=== PATIENT | male | born 1950 | race African-American/Black ===

== ENCOUNTER 2020-11-16 20:24 | Emergency (ER) | payer MEDICARE, SELFPAY ==
[2020-11-16] VITALS (7 sets, daily range): BP systolic 134–145; BP diastolic 86–94; PULSE 94–106; RESP 16–24; TEMP 36.1–37.1; O2SAT 87–94; BMI 33.0
--- NOTE | 2020-11-16 20:34 | EKG12_ITS ---
Test Reason : SOB Blood Pressure : / mmHG Vent. Rate : 097 BPM Atrial Rate : 097 BPM P-R Int : 152 ms QRS Dur : 120 ms QT Int : 372 ms P-R-T Axes : 051 -52 110 degrees QTc Int : 472 ms Normal sinus rhythm Left axis deviation Left ventricular hypertrophy with QRS widening and repolarization abnormality Abnormal ECG Confirmed by YUAN DICKINSON, MARGARITA ([id number]), greeting card editor BRANDON CASTRO ([id number]) on 11/18/2020 9:16:13 AM Referred By: RAZA Confirmed By:MARGARITA BOLDEN MD
--- NOTE | 2020-11-16 20:34 | RAD_ITS ---
INDICATION: SOB EXAMINATION/TECHNIQUE: X-RAY - XR Chest 1 View COMPARISON: None. FINDINGS: Bilateral interstitial and airspace opacities. The cardiomediastinal silhouette is unremarkable. No pleural effusion or pneumothorax. No acute osseous abnormalities. RAD/Chest 1 View (Portable) IMPRESSION: Bilateral interstitial and airspace opacities concerning for infection. Electronically Signed: Ambrocio Murphy MD at 21:57 EDT Tel , Service support ,
[2020-11-16] MEDS: dexAMETHasone 10 MG/ML Vial 6 MG IV (22:02)
[2020-11-16 22:07] LABS: Lactic Acid 1.5 mmol/L (0.4-1.9)
[2020-11-16 22:10] LABS: ALB/GLOB Ratio 0.5 RATIO (0.9-2.4); AST(SGOT) 107 U/L (15-37); Alanine Aminotransfer ALT/SGPT 78 U/L (16-61); Albumin, Serum 2.8 g/dL (3.2-5.0); Alkaline Phosphatase 59 U/L (45-117); Anion Gap 6 (5-15); BUN 33 mg/dL (7-18); BUN/Creat Ratio 19.2 RATIO (10-20); Chloride 101 mmol/L (98-107); Creatinine, Serum 1.72 mg/dL (0.70-1.30); EST Glomerular Filtration Rate 42 mL/min (>60); Est Glom Filt Rate - Afr Amer 51 mL/min (>60); Estimated Creatinine Clearance 45.16 ml/min; Globulin 5.7 g/dL (2.2-4.2); Glucose 107 mg/dL (74-106); Potassium 4.3 mmol/L (3.5-5.1); Protein, Total 8.5 g/dL (6.4-8.2); Sodium Level 135 mmol/L (136-145); Troponin-I HS 61 pg/mL (3.0-78.0)
[2020-11-16 22:15] LABS: Procalcitonin 0.25 ng/mL (0.00-0.09)
[2020-11-16 22:17] LABS: Absolute Neutrophil Count 5.3 X10^3/uL (2.0-7.7); Basophil# 0.03 X10^3/uL; Basophil% 0.4 % (0-1); Eosinophil# 0.02 X10^3/uL; Eosinophils% 0.3 % (0-5); Hematocrit 49.9 % (40-54); Hemoglobin 16.2 g/dL (13.0-16.5); Lymphocyte % 14.7 % (19-41); Mean Corp Hgb Conc 32.5 g/dL (32-36); Mean Corpuscular Hgb 28.7 pg (27.0-32.0); Mean Corpuscular Volume 88.3 fL (80-94); Mean Platelet Vol. 10.8 fl (6.2-12.0); Monocyte# 0.34 X10^3/uL; NRBC Flagged by Analyzer 0 % (0-5); Neutrophil # 5.32 X10^3/uL (2.7-7.7); Neutrophil % 78.4 % (47-70); POSITIVE MORPHOLOGY YES; Platelet Count 283 K/mm3 (150-450); RBC Distribution Width CV 13.5 % (11.6-14.6); RBC Distribution Width SD 43.7 fl (35.1-43.9); Red Blood Count 5.65 M/mm3 (4.6-6.2); White Blood Count 6.8 K/mm3 (4.4-11.0)
[2020-11-16 22:19] LABS: Differential Indicated SCAN CRITERIA MET
[2020-11-16 22:34] LABS: D-Dimer Quantitative (DVT/PE) 2.26 FEU/ug/m (0.27-0.49)
--- NOTE | 2020-11-16 22:34 | CT_ITS ---
EXAM: CT Angiography Chest Without and With Intravenous Contrast CLINICAL INDICATION: shortness of breath TECHNIQUE: Helically acquired angiography images were obtained of the chest without and with intravenous contrast. This CT exam was performed using one or more of the following dose reduction techniques: automated exposure control, adjustment of the mA and/or kV according to patient size, and/or use of iterative reconstruction technique. MIP reconstructed images were created and reviewed. CONTRAST: IV 100mL [id number] COMPARISON: None. FINDINGS: Artifacts: Motion artifact. Pulmonary arteries: Unremarkable. Normal in caliber. No pulmonary embolism is identified. Motion artifact limits evaluation of the distal pulmonary arteries. Aorta: Unremarkable. Normal in caliber. No evidence of dissection. Great vessels of aortic arch: Unremarkable. Normal in caliber. No evidence of dissection. Lungs and pleural spaces: Consolidative infiltrates throughout both lungs consistent with pneumonia. No mass. No pleural effusion or thickening. Heart: Unremarkable. Heart size is normal. No pericardial effusion. No signs of right heart strain, ratio of right ventricle to left ventricle measures less than 1. Mediastinum: Scattered mediastinal lymph nodes some of which are upper limits of normal in size and are most likely reactive lymph nodes. Esophagus is unremarkable. No hiatal hernia. Thyroid: Unremarkable. No thyroid lesions. Bones/joints: Degenerative changes in both shoulders. No suspicious lytic or blastic abnormality. CT/CTA Chest W/WO Contrast IMPRESSION: 1. No pulmonary embolism is identified. Motion artifact limits evaluation of the distal pulmonary arteries. 2. Consolidative infiltrates throughout both lungs consistent with pneumonia. Consider COVID-19 pneumonia. 3. Scattered mediastinal lymph nodes some of which are upper limits of normal in size and are most likely reactive lymph nodes. ASSESSMENT: ABNORMAL report - There are abnormal findings in this report which may be related or unrelated to the reason for the exam. Electronically Signed: Luke Venegas MD at 0:24 EDT Tel , Service support ,
[2020-11-16 22:48] LABS: Differential Comment SCANNED
[2020-11-17 00:40] VITALS: BP 136/86; PULSE 82; RESP 24; O2SAT 94
[2020-11-17 00:42] VITALS: BP 136/86; PULSE 92; RESP 24; TEMP 36.6; O2SAT 94
--- NOTE | 2020-11-17 01:08 | ED.RN ---
[facility] paged for home o2 at this time
--- NOTE | 2020-11-17 01:11 | ED.VIS.DYS ---
HPI History of Present Illness Chief Complaint: Shortness of Breath Narrative Narrative: Patient presenting for evaluation secondary to complications of coronavirus. Patient is about 2 weeks out from the onset of symptoms, but states that he is not getting any better. Still been associated with some cough and shortness of breath. Patient denies that he is still having fevers. No significant nausea or vomiting. No diarrhea. He does state that he feels somewhat dehydrated associated with this. Patient has a underlying history of asthma, feels that that potentially is why he is not getting any better. Patient states that he was not any sort of medications for his coronavirus. Review of systems otherwise negative. [facility] Medical History Asthma Diabetes High cholesterol Hypertension Home Medications dexamethasone [Decadron] 6 mg PO DAILY #5 tab 11/17/20 [Rx Last Taken Unknown] Allergy/AdvReac Type Severity Reaction Status Date / Time No Known Allergies Allergy Verified 11/16/20 20:27 Social History Smoking Status: Never smoker ROS ROS ED Constitutional Constitutional ED: Reports other Details: Generalized fatigue ENT ENT ED: Denies rhinorrhea Cardiovascular Cardiovascular: Denies chest pain Respiratory/Chest Respiratory/Chest: Reports cough and dyspnea Gastrointestinal Gastrointestinal: Denies abdominal pain, diarrhea, nausea or vomiting Genitourinary Genitourinary ED: Denies dysuria or hematuria Musculoskeletal Musculoskeletal: Denies back pain Integumentary Denies rash Neurologic Neurologic: Denies paresthesias or weakness Psychiatric Psychiatric: Denies depression Endocrine Endocrinology: Denies fatigue Allergic/Immunologic Allergic/Immunologic ED: Denies urticaria EXAM Physical Exam Const Vital Signs: 11/16/20 20:24 11/16/20 20:31 11/16/20 20:33 Temperature 97 F L Temperature Source Temporal Pulse Rate 106 H 99 100 Respiratory Rate 22 H 24 H 20 H Respiratory Effort Respiratory Pattern Blood Pressure 145/86 H Blood Pressure Mean 105 Pulse Ox 87 89 90 Oxygen Delivery Method Room Air Nasal Cannula Nasal Cannula Oxygen Flow Rate (L/min) 2 4 11/16/20 21:34 11/16/20 21:38 11/16/20 21:40 Temperature 98.8 F Temperature Source Temporal Pulse Rate 102 H Respiratory Rate 16 Respiratory Effort Short of Breath Respiratory Pattern Normal Blood Pressure 144/94 H Blood Pressure Mean 110 Pulse Ox 90 89 Oxygen Delivery Method Room Air Room Air Room Air Oxygen Flow Rate (L/min) 2 11/16/20 22:02 11/17/20 00:40 11/17/20 00:42 Temperature 98.8 F 97.8 F Temperature Source Temporal Temporal Pulse Rate 94 82 92 Respiratory Rate 17 24 H 24 H Respiratory Effort Respiratory Pattern Blood Pressure 134/94 H 136/86 H 136/86 H Blood Pressure Mean 107 102 102 Pulse Ox 92 94 94 Oxygen Delivery Method Nasal Cannula Nasal Cannula Nasal Cannula Oxygen Flow Rate (L/min) 2 3 2 11/17/20 01:45 Temperature Temperature Source Pulse Rate 89 Respiratory Rate 20 H Respiratory Effort Respiratory Pattern Blood Pressure 125/81 H Blood Pressure Mean Pulse Ox 93 Oxygen Delivery Method Oxygen Flow Rate (L/min) Positive well nourished and well developed Constitutional Narrative: Well-appearing age-appropriate male not acutely distressed sitting upright in the bed General Appearance ED: well developed and NAD HEENT Reports dry mucous membranes Negative for trauma or tenderness Mouth ED: Yes dry mucous membranes Mouth: dry mucous membranes Eyes EOMs intact bilaterally Neck no lymphadenopathy, supple and no JVD Chest Wall inspection of chest normal Resp normal respiratory effort Resp Narrative: Mild wheezes in the upper lung villegas, no rhonchi or rales. No evidence of accessory muscle use. Cardio regular rate, regular rhythm, no murmurs and peripheral pulses 2+ throughout Cardio Narrative: 2+ radial pulses bilaterally symmetric GI normal to inspection, nondistended, normoactive bowel sounds, non-tender and no masses Palpation: soft Back/Spine normal to inspection Extremity normal to inspection General Extremety ED: Negative for tenderness Neuro oriented x3 and no sensory deficits noted Sensorium / Orientation: alert Motor Exam: strength 5/5 throughout Psych mental status grossly normal Skin no rashes or lesions noted MDM MDM MDM Narrative Medical decision making narrative: Patient presented secondary to coronavirus that was refractory to time. Patient was noted to be hypoxic upon arrival, he had significant improvement of his oxygenation on nasal cannula. Chest x-ray by my personal review shows bilateral infiltrates consistent with the patient's coronavirus infection. CBC demonstrates normal white blood cell count with lymphocyte suppression and an elevated neutrophil and immature granulocyte count. Chemistry does show the patient to be somewhat dehydrated consistent with his physical exam creatinine was 1.72 I do not have a baseline for the patient as he is not from the area. Patient was given IV fluid hydration. No significant electrolyte derangements were noted. He had a modest elevation of AST at 107, CRP was elevated at 119, procalcitonin was not significantly elevated indicating patient likely does not have a bacterial superinfection on top of his viral infection. Due to the fact that the patient's symptoms were refractory to time, I did obtain a D-dimer which was found to be positive so CT angiogram of the chest was performed which does not demonstrate any evidence of pulmonary emboli. Patient had some symptomatic improvement with oxygen as well as fluids in the emergency department. Patient is outside of the window for treatment with remdesivir, and given the fact that he improved with nasal cannula oxygen he potentially could be discharged home with oxygen and steroids. He was given a first dose of steroids in the emergency department. Outpatient supplemental oxygen was arranged for the patient. Patient was recommended other conservative management measures such as aggressive hydration and close follow-up and return for worsening symptoms. He voiced understanding of this. Patient was discharged in improved condition. Lab Data Labs: Laboratory Results - last 24 hr 11/16/20 11/16/20 11/16/20 21:12 21:12 21:12 WBC 6.8 RBC 5.65 Hgb 16.2 Hct 49.9 MCV 88.3 MCH 28.7 MCHC 32.5 RDW Std Deviation 43.7 RDW Coeff of Ezequiel 13.5 Plt Count 283 MPV 10.8 Immature Gran % (Auto) 1.200 H Neut % (Auto) 78.4 H Lymph % (Auto) 14.7 L [place] % (Auto) 5.0 Eos % (Auto) 0.3 Baso % (Auto) 0.4 Absolute Neuts (auto) 5.3 Absolute Lymphs (auto) 1.00 Nucleated RBC % 0 Differential Comment SCANNED D-Dimer Quant (PE/DVT) Sodium 135 L Potassium 4.3 Chloride 101 Carbon Dioxide 28.0 Anion Gap 6 BUN 33 H Creatinine 1.72 H Estim Creat Clear Calc 45.16 Est GFR (MDRD) Af Amer 51 L Est GFR (MDRD) Non-Af 42 L BUN/Creatinine Ratio 19.2 Glucose 107 H Lactic Acid 1.5 Calcium 9.0 Total Bilirubin 1.10 H AST 107 H ALT 78 H Alkaline Phosphatase 59 Troponin I High Sens 61 C-React Prot Ext Range 119.00 H Total Protein 8.5 H Albumin 2.8 L Globulin 5.7 H Albumin/Globulin Ratio 0.5 L Procalcitonin 11/16/20 11/16/20 21:12 21:50 WBC RBC Hgb Hct MCV MCH MCHC RDW Std Deviation RDW Coeff of Ezequiel Plt Count MPV Immature Gran % (Auto) Neut % (Auto) Lymph % (Auto) [place] % (Auto) Eos % (Auto) Baso % (Auto) Absolute Neuts (auto) Absolute Lymphs (auto) Nucleated RBC % Differential Comment D-Dimer Quant (PE/DVT) 2.26 H* Sodium Potassium Chloride Carbon Dioxide Anion Gap BUN Creatinine Estim Creat Clear Calc Est GFR (MDRD) Af Amer Est GFR (MDRD) Non-Af BUN/Creatinine Ratio Glucose Lactic Acid Calcium Total Bilirubin AST ALT Alkaline Phosphatase Troponin I High Sens C-React Prot Ext Range Total Protein Albumin Globulin Albumin/Globulin Ratio Procalcitonin 0.25 H Radiography Diagnostic Testing: Radiology Impression Chest X-Ray 11/16/20 20:34 IMPRESSION: Bilateral interstitial and airspace opacities concerning for infection. Electronically Signed: Ambrocio Murphy MD at 21:57 EDT Tel , Service support , Chest CTA 11/16/20 22:34 IMPRESSION: 1. No pulmonary embolism is identified. Motion artifact limits evaluation of the distal pulmonary arteries. 2. Consolidative infiltrates throughout both lungs consistent with pneumonia. Consider COVID-19 pneumonia. 3. Scattered mediastinal lymph nodes some of which are upper limits of normal in size and are most likely reactive lymph nodes. ASSESSMENT: ABNORMAL report - There are abnormal findings in this report which may be related or unrelated to the reason for the exam. Electronically Signed: Luke Venegas MD at 0:24 EDT Tel , Service support , Discharge Plan Triage Chief Complaint: Shortness of Breath ED Provider: Fransico Shi Dx/Rx/DC Orders Clinical Impression: COVID-19, Hypoxia, Dehydration Instructions: Coronavirus Disease 2019 (COVID-19): Caring for Yourself or Others Prescriptions: New dexamethasone [Decadron] 6 mg tablet 6 mg PO DAILY Qty: 5 RF: 0 Referrals: WING ALEX [Other] - 2 Days Disposition Disposition: Home, Self Care Discharge Date/Time: 11/17/20 01:46
[2020-11-17 01:45] VITALS: BP 125/81; PULSE 89; RESP 20; O2SAT 93
--- NOTE | 2020-11-17 12:03 | CASEMGMT ---
HILDA CLEMONS COVID Home O2 Follow-up: This RN DEONTE phoned pt regarding home O2 set-up from the ED. Pt states he received the concentrator without difficulty and was pleased with the process. Pt states he is here from [place] and is staying with his girlfriend who is also recovering from COVID. Pt denies any current complaints of SOB. No SOB noted during the conversation. Pt states his PO was 85% this morning but increased to greater than 90% after breathing through his nose more. States the O2 remains at 4l/min as was in the ED. Pt states he will be in the area for another week or so and then he and his girlfriend are moving to [place]. Informed pt that if O2 is still needed at that time then arrangements will need to be arranged from O2 in [place]. Pt expressed understanding. Pt does not have a local physician. Instructed pt to call his physician in [place] for potential virtual visit for follow-up. Pt expressed understanding. Pt states he did get his Decadron and is taking as prescribed with food. Pt denies any further questions or concerns at this time. Jose Giraldo RN CM
--- NOTE | 2020-11-18 12:02 | CASEMGMT ---
HILDA CLEMONS COVID Follow-up: This RN CM phoned patient regarding home O2 follow-up from the ED. Pt answered the phone. Pt states he is doing ok but had questions regarding his PO and mobility. Pt states his PO had decreased yesterday/last night to 78-80% while on his O2 at 4l/min. Pt states his girlfriend increased the O2 to 4.1/min. Pt checked his PO while on the phone with this RN DEONTE and reports it to read 87-93%. Pt states he has not been moving much and mainly staying in his chair. States he was having more difficulty standing up to brush his teeth. Pt states he did have an episode of labored breathing yesterday but denies any feelings of SOB at this time. Instructed pt that he should report back to the ED if PO remains in the 80's or if he were to develop SOB and/or labored breathing again. Will follow-up with patient later this afternoon for further evaluation. Jose Giraldo RN CM
--- NOTE | 2020-11-18 16:01 | CASEMGMT ---
HILDA BOYCE Follow-up Attempted to contact pt via phone, voicemail received. Pt had presented back to the ED and was discharged back home. Voicemail message left requesting return call. Jose Giraldo RN CM
--- NOTE | 2020-11-19 17:16 | CASEMGMT ---
HILDA CLEMONS COVID Home O2 follow-up: This HILDA CLEMONS attempted to contact pt via phone. Voicemail was received and a nondescript message was left requesting a return call. Jose Giraldo RN CM
== END 2020-11-17 01:46 | disposition home or self-care (01) ==
PROVIDERS: Emergency Provider Emergency Medicine
DX: U07.1 COVID-19 (principal); E86.0 Dehydration; R09.02 Hypoxemia
CPT/HCPCS: 71045; 71275; 80053; 83605; 84145; 84484; 85025; 85379; 86140; 87040; 93005; 94760; 96361; 96374; 99284; J7040; Q9967; A4216

== ENCOUNTER 2020-11-18 13:18 | Emergency (ER) | payer MEDICARE, SELFPAY ==
[2020-11-18 13:19] VITALS: BP 142/96; PULSE 86; RESP 20; TEMP 35.7; O2SAT 86; BMI 31.6
[2020-11-18 13:26] VITALS: O2SAT 90
[2020-11-18 13:40] VITALS: BP 145/101; PULSE 81; RESP 19; O2SAT 92; O2SAT 94
--- NOTE | 2020-11-18 13:52 | EDS_ITS ---
HPI History of Present Illness Chief Complaint: Shortness of Breath Detail of Chief Complaint: Low pulse ox Informant: patient and spouse/S.O. Onset/Context/Timing Onset: Days Context: gradual, light activity and exertion Timing: Continuous (Dyspnea is continuous) and Intermittent (Several low pulse ox readings on 4.5 L of oxygen by nasal cannula) Quality: Positive for Dyspnea on exertion; Negative for Orthopnea, PND and Wheezing Current Severity: Mild Maximum Severity: Moderate Worsened by: Exertion Relieved by: Nothing Associated Symptoms cough, rhinorrhea, post nasal drip and sore throat; Negative for clear sputum, white sputum, yellow sputum or green sputum Chest Pain: Positive for None Narrative Narrative: Patient is an elderly male who presents because of multiple low pulse ox readings. This occurred yesterday. His symptoms started approximate 2 weeks ago. He is on home oxygen by nasal cannula at 4.5 L. He presents because of persistent cough, headache, intermittent hypoxia and not feeling well. He states he has no appetite. He was seen early in the morning of November 17. He had extensive work-up at that time including CTA to evaluate for pulmonary embolus. He and his significant other are concerned because of persistent symptoms and low pulse ox readings. His pulse ox was low on the seventh only on room air. His pulse ox during the history and physical was 91 to 94%. PE Risk Factors: Positive for Recent immobilization; Negative for Cancer, OCP + Smoking + > 35, Prior DVT or PE, Recent surgery and Recent travel Prior similar symptoms: Yes Recent Illness/Hospitalization: Yes PFSH PFS Medical History (Updated 11/18/20 @ 15:[address] Isma Odonnell MD) Asthma Diabetes High cholesterol Hypertension Non-smoker Sleep apnea Home Medications dexamethasone [Decadron] 6 mg PO DAILY #5 tab 11/17/20 [Rx Last Taken Unknown] Allergy/AdvReac Type Severity Reaction Status Date / Time No Known Allergies Allergy Verified 11/16/20 20:27 Social History (Updated 11/18/20 @ 13:[address] Isma Odonnell MD) household members: significant other Smoking Status: Never smoker alcohol intake: current alcohol intake frequency: holidays/special occasions only substance use type: does not use ROS ROS ED Constitutional Constitutional ED: Reports fever(s) and sweats; Denies chills or weight loss Eyes Eyes: Denies blurry vision, change in vision or diplopia ENT ENT ED: Reports rhinorrhea and sore throat; Denies ear pain Cardiovascular Cardiovascular: Denies chest pain, orthopnea, palpitations or paroxysmal nocturnal dyspnea Respiratory/Chest Respiratory/Chest: Reports cough, dyspnea and dyspnea on exertion; Denies orthopnea, paroxysmal nocturnal dyspnea or sputum Gastrointestinal Gastrointestinal: Reports abdominal pain and nausea; Denies vomiting Genitourinary Genitourinary ED: Denies dysuria, hematuria or urinary frequency Musculoskeletal Musculoskeletal: Denies arthralgias or myalgias Integumentary Denies rash Neurologic Neurologic: Reports headache(s) Hematologic/Lymphatic Hematologic/Lymphatic: Denies easy bleeding or easy bruising EXAM Physical Exam Const Vital Signs: 11/18/20 13:19 11/18/20 13:26 11/18/20 13:40 Temperature 96.2 F L Temperature Source Temporal Pulse Rate 86 81 Respiratory Rate 20 H 19 H Respiratory Effort Non-Labored Respiratory Depth Normal Respiratory Pattern Normal Blood Pressure 142/96 H 145/101 H Blood Pressure Mean 111 115 Pulse Ox 86 90 94 Oxygen Delivery Method Room Air Nasal Cannula Nasal Cannula Oxygen Flow Rate (L/min) 4 4 11/18/20 14:02 Temperature Temperature Source Pulse Rate Respiratory Rate Respiratory Effort Respiratory Depth Respiratory Pattern Blood Pressure Blood Pressure Mean Pulse Ox 93 Oxygen Delivery Method Nasal Cannula Oxygen Flow Rate (L/min) 4 Positive well nourished and well developed General Appearance ED: well developed and NAD HEENT Reports TM's clear and moist mucous membranes HEENT Narrative: Ears normal. Posterior pharynx unremarkable. atraumatic Tympanic Membrane ED: Yes TM's clear Eyes PERRL and EOMs intact bilaterally General Eye ED: Negative for pale conjunctiva or scleral icterus Neck no lymphadenopathy, supple, no meningeal signs and no JVD Resp normal respiratory effort and No clear to auscultation bilaterally Auscultation: rales Cardio regular rate, regular rhythm, S1 normal heart sound, S2 normal heart sound and no murmurs GI non-tender, non-distended and no masses Auscultation: normoactive bowel sounds Palpation: soft Back/Spine no CVA tenderness and normal to inspection Extremity normal to inspection General Extremety ED: Negative for edema or tenderness General Extremity: Negative for edema Neuro oriented x3 and CN's II-XII intact bilaterally Sensorium / Orientation: alert Psych mental status grossly normal Thought Process: normal thought process Skin no wounds Lesions: no lesions Rashes: no rashes MDM MDM MDM Narrative Medical decision making narrative: Will obtain CBC to assess white count and H&H. BMP to assess electrolytes and renal function. Presently patient not hypoxic. Lab Data Attestation: I reviewed the patient's lab results. Lab results narrative: Patient is on Decadron. This may explain his elevated white count. Procalcitonin was obtained as well as chest x-ray. Chest x-ray reveals multilobar bilateral interstitial infiltrate consistent with Covid pneumonia. This was interpreted by me at 1442 Procalcitonin was 25 on November 17. Suspect the white count is due to the D ecadron. Since he has not been hypoxic here suspect that the portable pulse ox apparatus is malfunctioning. He is not the first patient I have seen today where the pulse ox was abnormal at home but normal/acceptable in the emergency department. Suspect faulty portable pulse ox machine. Labs: Laboratory Results - last 24 hr 11/18/20 11/18/20 11/18/20 13:56 13:56 14:30 WBC 14.1 H RBC 5.59 Hgb 16.0 Hct 48.0 MCV 85.9 MCH 28.6 MCHC 33.3 RDW Std Deviation 41.5 RDW Coeff of Ezequiel 13.2 Plt Count 296 MPV 10.8 Immature Gran % (Auto) 1.600 H Neut % (Auto) 86.3 H Lymph % (Auto) 6.2 L [place] % (Auto) 5.5 Eos % (Auto) 0.0 Baso % (Auto) 0.4 Absolute Neuts (auto) 12.2 H Absolute Lymphs (auto) 0.87 Nucleated RBC % 0 Sodium 134 L Potassium 4.8 Chloride 103 Carbon Dioxide 28.0 Anion Gap 3 L BUN 40 H Creatinine 1.42 H Estim Creat Clear Calc 54.70 Est GFR (MDRD) Af Amer 63 Est GFR (MDRD) Non-Af 52 L BUN/Creatinine Ratio 28.2 H Glucose 150 H Calcium 9.5 Procalcitonin 0.13 H Radiography Chest X-Ray - ED: 1 View, Read by ED Physician, Normal, Heart, Mediastinum, Right Infiltrate and Left Infiltrate Diagnostic Testing: Radiology Impression Chest X-Ray 11/18/20 14:37 IMPRESSION: Slightly worsening bilateral patchy infiltrates in the preferential peripheral distribution suggestive of Covid pneumonitis. Electronically Signed: Bobby Zapata MD at 15:08 EDT , Service support , Discharge Plan Triage Chief Complaint: Shortness of Breath ED Provider: Isma Odonnell Dx/Rx/DC Orders Clinical Impression: Pneumonia due to 2019-nCoV, Chronic respiratory failure with hypoxia Prescriptions: No Action dexamethasone [Decadron] 6 mg tablet 6 mg PO DAILY Qty: 5 RF: 0 Referrals: WING ALEX [Other] Disposition Disposition: Home, Self Care
[2020-11-18 14:02] VITALS: O2SAT 93
[2020-11-18 14:07] LABS: Absolute Lymphocyte Count 0.87 X10^3/uL (0.83-4.51); Absolute Neutrophil Count 12.2 X10^3/uL (2.0-7.7); Basophil# 0.05 X10^3/uL; Basophil% 0.4 % (0-1); Lymphocyte # 0.87 X10^3/ul (0.83-4.51); Lymphocyte % 6.2 % (19-41); Mean Corp Hgb Conc 33.3 g/dL (32-36); Mean Corpuscular Hgb 28.6 pg (27.0-32.0); Mean Corpuscular Volume 85.9 fL (80-94); Mean Platelet Vol. 10.8 fl (6.2-12.0); Monocyte# 0.78 X10^3/uL; Monocyte% 5.5 % (0-10); NRBC Flagged by Analyzer 0 % (0-5); Neutrophil # 12.21 X10^3/uL (2.7-7.7); Neutrophil % 86.3 % (47-70); Platelet Count 296 K/mm3 (150-450); RBC Distribution Width CV 13.2 % (11.6-14.6); RBC Distribution Width SD 41.5 fl (35.1-43.9); Red Blood Count 5.59 M/mm3 (4.6-6.2); White Blood Count 14.1 K/mm3 (4.4-11.0)
[2020-11-18 14:20] LABS: Anion Gap 3 (5-15); BUN 40 mg/dL (7-18); BUN/Creat Ratio 28.2 RATIO (10-20); Calcium,Total 9.5 mg/dL (8.5-10.1); Chloride 103 mmol/L (98-107); Creatinine, Serum 1.42 mg/dL (0.70-1.30); EST Glomerular Filtration Rate 52 mL/min (>60); Est Glom Filt Rate - Afr Amer 63 mL/min (>60); Glucose 150 mg/dL (74-106); Potassium 4.8 mmol/L (3.5-5.1); Sodium Level 134 mmol/L (136-145)
--- NOTE | 2020-11-18 14:37 | RAD_ITS ---
STUDY: X-RAY CHEST REASON FOR EXAM: Male, 70 years old. Shortness of breath and hypoxia. TECHNIQUE: Single AP portable view of the chest. COMPARISON: Comparison is made with prior study dated 11/16/2020. FINDINGS: EKG electrodes are seen. Slightly worsening bilateral patchy infiltrates in a preferential peripheral distribution suggestive of possible Covid pneumonitis. There is no demonstrated pleural abnormality. Normal size heart. Normal mediastinum and gustavo. Normal visualized pulmonary arteries. There is atherosclerotic tortuosity of the aortic arch and descending thoracic aorta. Normal visualized thoracic spine. Normal visualized ribs, clavicles, and shoulders. There is no demonstrated abnormality of the visualized soft tissue structures of the upper abdomen. RAD/Chest 1 View (Portable) IMPRESSION: Slightly worsening bilateral patchy infiltrates in the preferential peripheral distribution suggestive of Covid pneumonitis. Electronically Signed: Bobby Zapata MD at 15:08 EDT , Service support ,
[2020-11-18 15:00] LABS: Procalcitonin 0.13 ng/mL (0.00-0.09)
[2020-11-18 16:12] VITALS: BP 150/103; PULSE 81; RESP 18; O2SAT 91
== END 2020-11-18 16:13 | disposition home or self-care (01) ==
PROVIDERS: Emergency Provider Emergency Medicine
DX: U07.1 COVID-19 (principal); J12.82 Pneumonia due to coronavirus disease 2019; J96.11 Chronic respiratory failure with hypoxia; Z99.81 Dependence on supplemental oxygen
CPT/HCPCS: 71045; 80048; 84145; 85025; 99284

== ENCOUNTER → 2020-11-20 04:47 | Emergency (ER) | payer MEDICARE, SELFPAY ==
--- NOTE | 2020-11-20 05:47 | EX.ED.CRITCA ---
HPI History of Present Illness Chief Complaint: CPR Narrative Narrative: Patient presenting unresponsive via EMS. He is reported Covid positive x10 days. Patient was reported to have been at home with his girlfriend when he was heard coughing in the bathroom and then she heard him fall. EMS states that he had pulses when they arrived however during transport they lost pulses. They were unable to get IV access. They did start CPR. [facility] Medical History Asthma Diabetes High cholesterol Hypertension Non-smoker Sleep apnea Home Medications dexamethasone [Decadron] 6 mg PO DAILY #5 tab 11/17/20 [Rx Last Taken Unknown] Allergy/AdvReac Type Severity Reaction Status Date / Time No Known Allergies Allergy Verified 11/20/20 05:52 Social History household members: significant other Smoking Status: Never smoker alcohol intake: current alcohol intake frequency: holidays/special occasions only substance use type: does not use ROS ROS ED Review of Systems ROS Unobtainable: due to encephalopathy, due to mental condition and due to mental status EXAM Physical Exam Const Vital Signs: 11/20/20 04:47 Oxygen Delivery Method Ambu-Bag General Appearance ED: other Unresponsive HEENT normocephalic and atraumatic Eyes Eyes Narrative: Pupils fixed and mid dilated. Resp Resp Narrative: No spontaneous respiration Cardio Cardio Narrative: No spontaneous pulse MDM MDM MDM Narrative Medical decision making narrative: Patient arrives via EMS unresponsive with CPR in place. After obtaining IO access in the left tibia we did give epinephrine. It was reported that the patient was Covid positive so precautions are in place. Patient's initial EKG performed by EMS prior to loss of vital signs did meet ST elevation criteria however since the patient is unresponsive and actively undergoing CPR ACLS protocol was used. Patient had been getting 2 to 3 minutes of CPR prior to arrival. We did continue to a total of nearly 30 minutes. Patient had no ROSC. At this point time of was called at 0508. The patient's girlfriend did arrive and I did discuss this with her. She stated that he only had a history of asthma however looking at the medical record it looks like he had more medical problems. She states that he had no cardiac history. Apparently he had come from [place] to be with her and tested positive for Covid right after arrival and had not been doing well. Patient was requiring oxygen for COVID-19 and is reported to the 2 L of oxygen via nasal cannula prior to this and had been given a course of dexamethasone. Impression: 1. Cardiopulmonary arrest Discharge Plan Triage Chief Complaint: CPR ED Provider: Jacob Moore Dx/Rx/DC Orders Prescriptions: No Action dexamethasone [Decadron] 6 mg tablet 6 mg PO DAILY Qty: 5 RF: 0
[2020-11-20 05:53] VITALS: PULSE 0; RESP 0; TEMP 36.6; BMI 31.6
== END ==
PROVIDERS: Emergency Provider Student in an Organized Health Care Education/Training Program
DX: I46.9 Cardiac arrest, cause unspecified (principal); U07.1 COVID-19; Z99.81 Dependence on supplemental oxygen
CPT/HCPCS: 92950; 99281; J7030; A4216